=== PATIENT | female | born 2000 | race Caucasian/White ===

== ENCOUNTER 2020-05-26 16:20 | Emergency (ER) | payer OTHER, MEDICAID ==
[~2020-05-26] VITALS: Ht 160 cm; Wt 74.8 kg
[2020-05-26] MEDS ORDERED: ENBRACE HR SOF1 EACH PO (16:31)
[2020-05-26 19:13] LABS: ABSOLUTE EOSINOPHILS 0.1 thou/uL (0.0-0.7); ABSOLUTE LYMPHOCYTES 1.5 thou/uL (0.8-5.3); ABSOLUTE MONOCYTES 0.6 thou/uL (0.0-1.2); BASOPHILS 0.4 %; HEMATOCRIT 36.3 % (37.0-47.0); HEMOGLOBIN 12.3 gm/dL (12.0-15.0); LYMPHOCYTES 18.4 %; MCH 30.4 pg (26.0-34.0); MCV 89.4 fL (80.0-100.0); MONOCYTES 7.5 %; NUCLEATED RBCS 0 /100WBC; PLATELET COUNT* 171 thou/uL (150-400); POLYS 72.7 %; RBC 4.07 mil/uL (4.20-5.00); RDW-CV 12.7 % (10.5-14.5); WBC 8.3 thou/uL (4.0-11.0)
[2020-05-26 19:28] LABS: ALBUMIN 3.2 g/dL (3.4-5.0); CALCIUM 8.9 mg/dL (8.5-10.1); CREATININE 0.7 mg/dL (0.6-1.3); POTASSIUM 3.9 mmol/L (3.5-5.1); TOTAL BILIRUBIN 0.4 mg/dL (<0.1-1.0); TOTAL PROTEIN 6.9 g/dL (6.4-8.2)
[2020-05-26 20:09] LABS: URINE BILIRUBIN NEGATIVE (Negative); URINE BLOOD NEGATIVE (Negative); URINE COLOR YELLOW; URINE GLUCOSE-RANDOM NEGATIVE (Negative); URINE KETONES TRACE (Negative); URINE LEUKOCYTES-REFLEX 3+ (Negative); URINE NITRITE-REFLEX NEGATIVE (Negative); URINE PROTEIN TRACE (Negative); URINE UROBILINOGEN 0.2 E.U./dl (0.2-1.0)
[2020-05-26 20:10] LABS: URINE CLARITY CLOUDY
[2020-05-26 20:11] LABS: BACTERIA-REFLEX >30 Many /HPF (None Seen); SQUAMOUS 4-10 Moderate /LPF (0-3); URINE RBC None Seen /HPF (0-2); URINE WBC-REFLEX 6-15 Few /HPF (0-5)
[2020-05-26 20:12] LABS: CASTS None Seen /LPF (None Seen); CRYSTALS None Seen /LPF (None Seen)
[2020-05-26] MEDS ORDERED: KEFLEX500 M1 PO (20:36)
[2020-05-26 20:53] VITALS: BP 122/68
== END 2020-05-26 20:53 | disposition home or self-care (01) ==
LOC: M.ERS 16:20
PROVIDERS: Physician Assistant
DX: O26.892 Other specified pregnancy related conditions, second trimester (principal); R10.31 Right lower quadrant pain; R10.32 Left lower quadrant pain; Z79.899 Other long term (current) drug therapy; Z3A.18 18 weeks gestation of pregnancy

== ENCOUNTER 2021-01-22 13:07 | Emergency (ER) | payer OTHER, MEDICAID ==
[~2021-01-22] VITALS: Ht 160 cm; Wt 69.4 kg
[~2021-01-22 13:07] MED LIST: ENBRACE HR SOF1 EACH PO; KEFLEX500 M1 PO
[2021-01-22 15:19] VITALS: BP 123/64
== END 2021-01-22 15:20 | disposition home or self-care (01) ==
LOC: M.ERS 13:07
DX: J06.9 Acute upper respiratory infection, unspecified (principal); Z20.822 Contact with and (suspected) exposure to COVID-19